=== PATIENT | female | born 1940 | race Caucasian/White ===

== ENCOUNTER 2017-04-04 07:05 | Inpatient (IN) ==
[2017-03-31 16:00] LABS: Basophils # (Auto) 0 K/mcL (0.0-0.3); Basophils % (Auto) 0.2 % (0.0-2.0); Eosinophils # (Auto) 0.1 K/mcL (0.0-0.7); Eosinophils % (Auto) 1.3 % (0.0-7.0); Granulocytes % (Auto) 74.4 % (38.0-78.0); Lymphocytes # (Auto) 1.5 K/mcL (1.5-4.8); Lymphocytes % (Auto) 19.1 % (15.5-49.0); Mean Cell Volume 94.6 fL (80.0-100.0); Mean Corpuscular HGB Conc 32.5 g/dL (31.0-36.0); Mean Corpuscular Hemoglobin 30.7 pg (26.0-34.0); Monocytes # (Auto) 0.4 K/mcL (0.1-0.9); Platelet Count 303 K/mcL (140-440); RBC 4.39 M/mcL (4.00-5.20); Red Cell Distribution Width 14.7 % (11.5-14.5)
[2017-03-31 16:09] LABS: Blood Urea Nitrogen 13 mg/dl (8-23)
[~2017-04-04 07:05] MED LIST: ACETAMINOPHEN 500 MG TABLET PO SCH; CELECOXIB 200 MG CAPSULE PO SCH; PREGABALIN 75 MG CAPSULE PO SCH; ceFAZolin 1 GM VIAL IV SCH; oxyCODONE 10 MG TAB.ER.12H PO SCH
[2017-04-04 08:15] LABS: Appearance,Urine HAZY; Bacteria,Urine 0 /hpf (0); Bilirubin,Urine NEG (NEG); Color,Urine YELLOW; Glucose,Urine (UA) NEGATIVE (NEG); Leukocyte Esterase,Urine 500 /uL (NEG); Mucus,Urine FEW /hpf (0); Nitrate,Urine NEG (NEG); Protein,Urine NEG (NEG); Specific Gravity,Urine 1.018 (1.000-1.035); Urine Blood NEG mg/dL (<0.03); Urine Hyaline Cast 3 /lpf (0-2); Urine RBC 5 /hpf (0-1); Urine Squamous Epithelial Cell 1 /hpf (0-4); Urine WBC > 182 /hpf (0-4); Urobilinogen,Urine NEG (NEG)
[2017-04-04] MEDS ORDERED: GENTAMICIN PER PHARMACY IV ONE (09:21)
[2017-04-04] MEDS ORDERED: GENTAMICIN SULFATE IV ONE (10:00)
[2017-04-04] MEDS ORDERED: SODIUM CHLORIDE 0.9% IV ONE (10:00)
[2017-04-04] MEDS ORDERED: MIDAZOLAM 2 MG/2 ML VIAL IV ONE (12:40)
[2017-04-04] MEDS ORDERED: ONDANSETRON 4 MG/2 ML VIAL IV ONE (12:40)
[2017-04-04] MEDS ORDERED: TRANEXAMIC ACID 1,000 MG/10 ML VIAL IV ONE ×2 (12:40→14:32)
[2017-04-04] MEDS ORDERED: KETAMINE 100 MG/ML ML IV ONE (12:40)
[2017-04-04] MEDS ORDERED: PHENYLEPHRINE 10 MG/ML VIAL IV ONE (12:40)
[2017-04-04] MEDS ORDERED: ePHEDrine 50 MG/ML AMPUL IV ONE (12:40)
[2017-04-04] MEDS ORDERED: ROPIVACAINE HCL/PF 20 ML VIAL IJ ONE (12:40)
[2017-04-04] MEDS ORDERED: LIDOCAINE HCL/PF 100 MG/5 ML SYRINGE IV ONE (12:40)
[2017-04-04] MEDS ORDERED: PROPOFOL 200 MG/20 ML VIAL IV ONE (12:40)
[2017-04-04] MEDS ORDERED: DEXAMETHASONE 10 MG/ML VIAL IV ONE (12:40)
[2017-04-04] MEDS ORDERED: fentaNYL 100 MCG/2 ML VIAL IV ONE (12:40)
[2017-04-04] MEDS ORDERED: MEPERIDINE 25 MG/ML SYRINGE IV PRN (13:51)
[2017-04-04] MEDS ORDERED: NALOXONE HCL 0.4 MG/ML VIAL IV PRN (13:51)
[2017-04-04] MEDS ORDERED: diphenhydrAMINE 50 MG/ML VIAL IV PRN (13:51)
[2017-04-04] MEDS ORDERED: METHOCARBAMOL 1,000 MG/10 ML VIAL IV PRN (13:51)
[2017-04-04] MEDS ORDERED: ONDANSETRON 4 MG/2 ML VIAL IV PRN ×2 (13:51→14:32)
[2017-04-04] MEDS ORDERED: ePHEDrine 50 MG/ML AMPUL IV PRN (13:51)
[2017-04-04] MEDS ORDERED: fentaNYL 100 MCG/2 ML VIAL IV PRN (13:51)
[2017-04-04] MEDS ORDERED: LACTATED RINGERS 250 ML IV PRN (13:51)
[2017-04-04] MEDS ORDERED: IPRATROPIUM/ALBUTEROL 3 ML AMPUL.NEB NEB PRN (13:51)
[2017-04-04] MEDS ORDERED: HYDROmorphone 2 MG/ML SYRINGE IV PRN ×2 (13:51→14:32)
[2017-04-04] MEDS ORDERED: BENZOCAINE/MENTHOL 1 LOZENGE PO PRN ×2 (13:51→14:32)
[2017-04-04] MEDS ORDERED: FLUMAZENIL 0.1 MG/ML ML IV PRN (13:51)
[2017-04-04] MEDS ORDERED: LACTATED RINGERS 1,000 ML IV SCH (14:00)
[2017-04-04] MEDS ORDERED: GENTAMICIN SULFATE 800 MG/20 ML VIAL IR ONE (14:10)
--- NOTE | 2017-04-04 14:31 | Brief Operative Note ---
Date of procedure: 04/04/17 Pre-op diagnosis: right shoulder traumatic djd and rct Post-op diagnosis: same Procedure: right shoulder reverse tsa and bicep tenodesis Grafts/Implants: Yes Anesthesia: TIMOTEO Surgeon: Shabbir Yuan Shelter Case Manager: Bon Chandler Estimated blood loss (cc): 30 Specimens Removed/Pathology: none sent Condition: stable Disposition: PACU
[2017-04-04] MEDS ORDERED: KETOROLAC 15 MG/ML VIAL IV PRN (14:32)
[2017-04-04] MEDS ORDERED: TEMAZEPAM 15 MG CAPSULE PO PRN (14:32)
[2017-04-04] MEDS ORDERED: POLYETHYLENE GLYCOL 3350 17 GM PACKET PO PRN (14:32)
[2017-04-04] MEDS ORDERED: MAGNESIUM HYDROXIDE 30 ML ORAL.SUSP PO PRN (14:32)
[2017-04-04] MEDS ORDERED: BISACODYL 10 MG SUPP.RECT PR PRN (14:32)
[2017-04-04] MEDS ORDERED: ACETAMINOPHEN 325 MG TABLET PO PRN (14:32)
[2017-04-04] MEDS ORDERED: FLEETS ADULT ENEMA PR PRN (14:32)
[2017-04-04] MEDS ORDERED: ALBUTEROL SULFATE 1 PUFF INHALER INH PRN (14:35)
--- NOTE | 2017-04-04 15:26 | XRay Report ---
CLINICAL INFORMATION: Postop total shoulder prostheses COMPARISON: None. FINDINGS: Total shoulder prostheses is in near anatomically alignment there is a 14 mm ossification overlying the lateral cortex of the surgical neck which may represent an old avulsion fracture.. IMPRESSION: Shoulder prostheses in near anatomic alignment. Interpreted and Authenticated by: Dougie Ceja 04/04/17
--- NOTE | 2017-04-04 15:42 | Operative Note ---
DATE OF OPERATION: 04/04/2017 PREOPERATIVE DIAGNOSIS: Right shoulder fracture with rotator cuff arthropathy and failed rotator cuff surgeries in the past. POSTOPERATIVE DIAGNOSIS: Right shoulder fracture with rotator cuff arthropathy and failed rotator cuff surgeries in the past. PROCEDURE: Right reverse total shoulder with biceps tenodesis. SURGEON: Shabbir Yuan MD. REGIONAL OFFICE COORDINATOR: Bon Chandler PA-C. ANESTHESIA: General LMA anesthesia. COMPLICATIONS: None. ESTIMATED BLOOD LOSS: About 20 to 30 mL. IMPLANTS: A size 7 cementless stem, a size 36 glenosphere and a standard metaglene. The metaglene had a central screw, a 6.5 which was 28 mm in length and then three additional locking screws around the edge, which were 16, 28 and 32. These seemed to fit very nicely with good fixation. The glenosphere was placed over the top of this area, standard thickness poly. DESCRIPTION OF PROCEDURE: The patient was brought to the operating room and put to sleep with general LMA anesthesia. Once asleep, the patient had the right shoulder sterilely prepped and draped in the usual sterile fashion, confirmed as the operative site both my initials, timeout, history and physical and x-rays. Once done, we then made a deltopectoral approach through the [place]. We then identified the subscap which was released. The deformity of the humeral head was significant with a posterior and lateral displacement. We made the neck cut without difficulty and then released the capsule inferiorly, dislocated the humeral head and made our neck cut at 40 degrees of retroversion. The bony piece was removed. We then placed the plate over the proximal humerus, and this was subluxed posteriorly. We performed a 360-degree capsulotomy around the glenoid and then placed the reamer centrally over a guide pin. This was reamed up for a 36 component. The metaglene was placed with the above-mentioned screws. Once locked into place, excellent bone quality and bony bleeding surface. We irrigated thoroughly and then placed a 36 mm glenosphere. This had 6 mm of offset and 2 mm of eccentricity. I then prepared the humeral shaft. Because of the deformity of the shaft it was difficult to align with the head. We placed a size 7 stem and removed excessive extra bone on the inferior portion of the head. We irrigated thoroughly and then trialed a standard thickness poly. We had to countersink the stem slightly. This seemed to fit very nicely at this point, so we implanted the size 7 stem, standard thickness poly. We irrigated thoroughly and reduced the humerus without difficulty. We took the shoulder through full range of motion. It seemed to have excellent motion and stability. We irrigated thoroughly. At this point, we repaired the biceps tendon to the pectoralis major in the bicipital groove area. Two [id number] #2 Ethibond stitches were placed and gave good repair. We irrigated thoroughly and then closed the deltopectoral interval with 2-0 Vicryl and adhesive closure. The patient was fitted and placed into a Donjoy sling. She left the operating room in good condition. RBH:sherwin Job ID: [id number] Doc ID: [id number] Shabbir Yuan MD
[2017-04-04] MEDS: 0.45 % SODIUM CHLORIDE 1,000 ML IV SCH (15:51)
[2017-04-04] MEDS: DOCUSATE SODIUM 100 MG CAPSULE PO SCH (20:47)
[2017-04-04] MEDS: ceFAZolin 1 GM VIAL IV SCH (20:47)
[2017-04-04] MEDS: FLUTICASONE/SALMETEROL 250/50 INHALER #14 INH SCH (20:48)
[2017-04-04] MEDS ORDERED: SENNOSIDES 1 TABLET PO SCH (21:00)
[2017-04-04] MEDS: 0.9 % SODIUM CHLORIDE 10 ML SYRINGE IV SCH (23:22)
[2017-04-05] MEDS: 0.45 % SODIUM CHLORIDE 1,000 ML IV SCH (01:47)
[2017-04-05] MEDS: ceFAZolin 1 GM VIAL IV SCH (04:37)
[2017-04-05] MEDS: 0.9 % SODIUM CHLORIDE 10 ML SYRINGE IV SCH (06:19)
[2017-04-05] MEDS ORDERED: LISINOPRIL 10 MG TABLET PO SCH (09:00)
[2017-04-05] MEDS: CALCIUM W/VIT D3 500 MG TABLET PO SCH ×2 (09:26→12:19)
[2017-04-05] MEDS: OMEPRAZOLE 20 MG CAPSULE PO SCH ×2 (09:27→12:18)
[2017-04-05] MEDS: DOCUSATE SODIUM 100 MG CAPSULE PO SCH ×2 (09:27→09:28)
[2017-04-05] MEDS: FLUTICASONE/SALMETEROL 250/50 INHALER #14 INH SCH (09:27)
[2017-04-05] MEDS: HYDROcodone/APAP 10/325MG TABLET PO PRN ×2 (09:34→12:02)
[2017-04-05] MEDS ORDERED: FLU VACC QS2017-18 36MOS UP/PF 60 MCG/0.5 ML SYRINGE IM ONE (10:00)
--- NOTE | 2017-04-05 17:20 | Orthopedic Progress Note ---
Subjective Patient information: Note initiated : 04/05/17 at 7:41 am Service Date, if different from initiated Date: [] Patient: Tory Lopez 76 y/o F admitted on 04/04/17 for Right Reverse Total Shoulder With Bicep Tendon . Chief Complaint: [Pt is stable this morning on post operative day 1 without any significant concerns or complaints. Patients vital signs have remained stable. Patients dressing is dry and exhibits a grossly intact neurovascular and neuromotor exam. Patients 10 point ROS is otherwise negative. ] Objective Vital signs: Vital Signs Temp Pulse Resp BP BP Pulse Ox 04/05/17 04:00 97.5 F 76 22 103/70 93 04/05/17 00:00 97.2 F 87 22 108/66 92 04/04/17 20:33 95 04/04/17 19:30 97.4 F 91 H 22 120/82 95 04/04/17 18:55 94 04/04/17 17:15 76 126/105 94 04/04/17 16:45 105/63 96 04/04/17 16:15 107/74 95 04/04/17 16:00 111/69 94 04/04/17 15:45 107/73 94 04/04/17 15:30 97/63 94 04/04/17 15:21 97.2 F 78 18 97/47 94 04/04/17 15:14 97.2 F 78 20 110/68 95 04/04/17 15:09 79 18 117/47 95 04/04/17 15:04 85 21 103/57 96 04/04/17 14:59 82 23 H 94/44 96 04/04/17 14:54 89 27 H 98/41 95 04/04/17 14:49 89 27 H 98/41 95 04/04/17 14:44 97.0 F 84 16 97/50 94 04/04/17 11:46 97.9 F 18 123/82 94 04/04/17 08:00 96.8 F L 18 119/76 93 Intake and Output 04/04/17 04/05/17 04/05/17 21:59 05:59 13:59 Intake Total 1740 / 1740 1393 / 1393 Output Total 550 / 550 Balance 1740 / 1740 843 / 843 Intake: IV 1400 / 1400 993 / 993 Sodium Chloride 0.45% 1, 993 / 993 000 ml @ 100 mls/hr IV . Q10H TEA Rx#:[id number] Oral 240 / 240 400 / 400 Other 100 / 100 Output: Void Amount 550 / 550 Other: Meal Dinner Percent of Meal Consumed 100% # Voids 1 1 Weight 211 lb Intake & Output: Intake & Output 04/04/17 04/05/17 04/05/17 21:59 05:59 13:59 Intake Total 1740 / 1740 1393 / 1393 Output Total 550 / 550 Balance 1740 / 1740 843 / 843 Weight 211 lb Intake: IV 1400 / 1400 993 / 993 Sodium Chloride 0.45% 1, 993 / 993 000 ml @ 100 mls/hr IV . Q10H TEA Rx#:[id number] Oral 240 / 240 400 / 400 Other 100 / 100 Output: Void Amount 550 / 550 Other: Meal Dinner Percent of Meal Consumed 100% # Voids 1 1 Incision: Yes healing Incision clean and dry: Yes Dressing: Yes clean, Yes dry Weight bearing status: full Neurological exam IM: Yes motor sensory intact, Yes neurovascular intact Extremities exam IM: Yes neurovascular intact - Labs CBC & BMP: 03/31/17 13:44 03/31/17 13:42 Labs: Orthopedic Labs 03/31/17 13:42 PT 13.4 INR 1.0 APTT 26 03/31/17 13:44 Hgb 13.5 Hct 41.5 Assessment and Plan (1) Hx of total shoulder replacement Patient has been educated regarding wound care and dressings, follow up recommendations, and medication use. We will f/u with the patient within 2-3 weeks for wound check. Status: Acute
--- NOTE | 2017-04-05 17:20 | Discharge Summary ---
Ortho Discharge - TSA - Patient Instructions Diet: Regular Diet Activity: activity as tolerated, weight bearing as tolerated Total Shoulder Protocol: Leave immobilizer in place except for bathing and ROM. Abduction pillow. Continue to wear sling until seen by physician. Codman Pendulum : These exercises use momentum produced by your body to move your shoulder joint. Bend your knees and shift your weight to your front leg, then back, allowing your arm to swing in the same directions. Using the same technique, alternately shift your weight between your right and left legs, allowing your arm to swing from side to side. These exercises are also performed in counterclockwise and clockwise circular motions. Typically these exercises are performed several times per day, for a set number repetitions or minutes, such as 20 times in a row or 5 minutes at a time. Dressing Care: May shower in 2 days Patient Education: Shoulder Arthroscopy (DC) - Problem Maintenance (1) Hx of total shoulder replacement Status: Acute - Follow Up Plan Follow Up Appointments: Bon Chandler PA-C [Physician Superintendent Sanitation] - 04/19/17 1:40 pm Disposition: Home, Self-Care Prognosis: Good Rehab Potential: Good I certify that the patient requires SNF services: No Overall status at discharge: patient is progressing back to baseline - Orders For Discharge Prescriptions: Docusate Sodium [Colace] 100 mg PO BID #60 capsule HYDROcodone/APAP 10/325MG [Odon 10/325Mg] 1 - 2 tab PO Q4HP PRN #75 tablet PRN Reason: Pain
== END 2017-04-05 12:25 | disposition home or self-care (01) | DRG 483 ==
LOC: MEDSUR 07:05
PROVIDERS: ADMIT Orthopaedic Surgery; ATTEND Orthopaedic Surgery